=== PATIENT | male | born 1965 | race Caucasian/White ===

== ENCOUNTER → 2019-07-11 | Outpatient (CLI) | payer BC | LOC: SJCVCIMAG 10:11 | DX: I08.8 Other rheumatic multiple valve diseases (principal); R01.1 Cardiac murmur, unspecified; R06.09 Other forms of dyspnea; R53.83 Other fatigue ==

== ENCOUNTER → 2019-07-24 | Outpatient (CLI) | payer BC ==
[~2019-07-24] MED LIST: ASPIRIN325 PO; CARVEDILOL6.25 M1 PO; EFFIENT10 MG PO; K-DUR10 MEQ PO; LASIX 20 MG TAB20 MG PO; LEVOXYL112 MCG PO; LEXAPRO 10 MG T10 M2 PO; ZESTRIL5 MG PO
== END ==
LOC: SJCVCIMAG 07:03
DX: I44.0 Atrioventricular block, first degree (principal); I10 Essential (primary) hypertension; Z79.899 Other long term (current) drug therapy

== ENCOUNTER 2019-07-30 07:59 | Inpatient (IN) | payer BC, OTHER ==
[2019-07-30] VITALS (10 sets, daily range): BP systolic 112–144; BP diastolic 81–93
[~2019-07-30] VITALS: Ht 172.7 cm; Wt 70.3 kg
[2019-07-30 09:18] LABS: HEMATOCRIT 48.7 % (42.0-52.0); HEMOGLOBIN 15.6 gm/dL (14.0-18.0); MCV 93.8 fL (80.0-100.0); PLATELET COUNT 244 thou/uL (150-400); RBC 5.19 mil/uL (4.50-6.00); RDW 16.7 % (10.5-14.5); WBC 11.4 thou/uL (4.0-11.0)
--- NOTE | 2019-07-30 09:22 | EKG ---
[facility] [place] [address] ELECTROCARDIOGRAM REPORT Name: RUTH AMADOR Room #: REG [facility]#: [id number] Admission: 07/30/19 Attend Phys: Clayton Serrano Discharge: Date of : 63 Report #: [id number] THIS REPORT FOR: cc: ESTEBAN NIELSEN JESSICA RNP Lundgren, Craig H. MD [facility] THIS REPORT FOR: //name// [facility] Test Date: 2019-07-30 Test Time: 08:55:54 Pat Name: RUTH AMADOR Department: Room: Gender: Automobile Mechanic Supervisor: Jason MCCLELLAN : 1965 Requested By: Clayton Serrano Order Number: [id number] MD: Raphael Gatica Measurements Intervals [place] Rate: 77 P: 49 WA: 239 QRS: -103 QRSD: 143 T: 17 QT: 379 QTc: 429 Interpretive Statements Sinus rhythm Prolonged WA interval Probable left atrial enlargement RBBB and LAFB No previous ECG available for comparison Electronically Signed On 07-30-2019 9:21:31 RASCHEL KNITTING MACHINE OPERATOR by Raphael Gatica [email or web address] <ELECTRONICALLY SIGNED> By: Raphael Gatica MD, FACC 07/30/19 0921 0855 Raphael Gatica MD, [facility] /EPI
[2019-07-30] MEDS ORDERED: ZESTRIL5 MG PO (09:23)
[2019-07-30] MEDS ORDERED: LEVOXYL112 MCG PO (09:23)
[2019-07-30] MEDS ORDERED: LEXAPRO 10 MG T10 M2 PO (09:24)
[2019-07-30] MEDS ORDERED: CARVEDILOL6.25 M1 PO (09:24)
[2019-07-30] MEDS ORDERED: LASIX 20 MG TAB20 MG PO (09:24)
[2019-07-30] MEDS ORDERED: K-DUR10 MEQ PO (09:25)
[2019-07-30 09:28] LABS: CALCIUM 9.4 mg/dL (8.5-10.1); CREATININE 1.1 mg/dL (0.7-1.3); POTASSIUM 4.9 mmol/L (3.5-5.1)
[2019-07-30 09:47] LABS: ABSOLUTE NEUTROPHILS 8.3 thou/uL (1.4-8.2); PLATELET ESTIMATE NORMAL
--- NOTE | 2019-07-30 16:27 | NUR ---
PT CARE ASSUMED APPROX 1300 POST CARDIAC CATH. PT ARRIVED WITH AT BEDSIDE. BOTH DENY QUESTIONS OR CONCERNS REGARDING POC. RIGHT GROIN POST CATH SITE C/D/I. GAIT ASSESSED AFTER BEDREST COMPLETED. PT UP WITH STEADY GAIT. VSS. MEDS ENTERED PER HOME REGIMINE ORDERED PER DR GAUTHIER. PT TOLERATING POC. NO DISTRESS NOTED.
--- NOTE | 2019-07-31 04:05 | NUR ---
ASSUMED PT CARE AT 1900, PT IS A&OX4, PT IS CALM AND PLEASANT, DENIES CHEST PAIN OR SOB, VITAL SIGNS STABLE, ASSESSMENTS CHARTED, RIGHT GROIN SITE CLEAN, DRY AND INTACT, RESTED WELL, WILL CONTINUE TO MONITOR
[2019-07-31 05:11] VITALS: BP 107/65
[2019-07-31 07:30] VITALS: BP 136/86
--- NOTE | 2019-07-31 10:14 | NUR ---
AAOX4. SR PER TELE WITH 1D AVB AND BBB. ASYMPTOMATIC. LIKELY DISCHARGING TODAY. AT BEDSIDE. WORKING WITH CARDIAC REHAB. WILL CONTINUE TO FOLLOW.
[2019-07-31 11:30] VITALS: BP 108/72
[2019-07-31] MEDS ORDERED: EFFIENT10 MG PO (12:50)
[2019-07-31] MEDS ORDERED: ASPIRIN325 PO (12:57)
[2019-07-31 13:24] VITALS: BP 107/65
--- NOTE | 2019-07-31 15:40 | NUR ---
DR. GAUTHIER'S OFFICE CALLED FOR DISCHARGE ORDERS AND INSTRUCTIONS. HE SAID HE WILL TAKE CARE OF IT.
--- NOTE | 2019-08-04 12:08 | CATHLAB ---
[facility] [place] [address] INVASIVE PROCEDURE REPORT Name: RUTH AMADOR Room #: 214-P [facility] IN M.R.#: [id number] Admission: 07/30/19 Attend Phys: Clayton Serrano Discharge: 07/31/19 Date of : 63 Report #: [id number] THIS REPORT FOR: cc: ESTEBAN NIELSEN JESSICA RNP Lammoglia, Francisco J. MD ~ APPROVED REPORT Study performed: 07/30/2019 09:47:03 Patient Details Patient Status: Out-Patient Room #: The patient is a 54 year-old male Event Personnel Clayton Serrano Botany Teacher, Michelle Yancey RN RN, Liat Aguilar Jackson, Sherra RTR Monitor, Eben Rod Monitor Procedures Performed Art Access - R femoral artery* KIRSTEN Place w/wo Plasty Single CIRC [id number] Initial Mod Sed Same Phys/QHP Gr5y 761696 11552 Mod Sed Same Phys/QHP Ea 533684 Hemostasis w/ Mynx Left Heart Cath w/or w/o Coronaries [id number] [facility], supervision of conscious sedation Indication CardiomyopathyPositive stress test, Chest pain Procedure Narrative The patient was brought electively to the Cardiac Catheterization Laboratory and was prepped and draped in a sterile manner. The Right Groin^ was infiltrated with 1% Lidocaine subcutaneous anesthesia. A PINNACLE 4FR Sheath #[id number] sheath was inserted into the RFA^. Coronary angiography was performed using coronary diagnostic catheters. The right coronary system was accessed and visualized with a JR 4 catheter. The left coronary system was accessed and visualized with a JL 4 catheter. The left ventricle was accessed and visualized with a Pigtail catheter. Left ventricular/Aortic Valve gradient assessed . Closure device was deployed with a 6 Fr Mynx. The patient tolerated the procedure well and there were no complications associated with the procedure. There was no hematoma. Intraoperative Conscious Sedation [facility] [address] [place] [address] INVASIVE PROCEDURE REPORT Name: RUTH AMADOR Room #: 214-P [facility] IN [facility].#: [id number] Admission: 07/30/19 Attend Phys: Clayton Miller Discharge: 07/31/19 Date of : 63 Report #: [id number] Sedation start time: 09:55 Case end Time: 10:52 Versed --2 mg Fluoro Time: 14.00 minutes Dose: DAP 81567.00 cGycm2 3374 mGy Contrast Type and Amount: Omnipaque 115 ml Diagnostic Cath Left Main Normal origin and caliber bifurcates left anterior descending left circumflex is free of high-grade disease LAD Moderate caliber type II vessel courses in the anterior interventricular sulcus. There are mild luminal irregularities of less than 30% throughout the proximal and proximal mid LAD. Its course in the sulcus is tortuous as it terminates as a small bifurcating vessel at the apex. It gives rise to septal and diagonal branches in its course Diagonal 1 Small caliber vessel without high-grade Diagonal 2 Small-caliber vessel without high-grade lesions coursing along the mid anterolateral wall Circumflex Moderate caliber nondominant vessel that has an eccentric greater than 75% lesion noted in its proximal portion. It then continues on giving rise to moderate caliber lateral wall marginal branch and then continues posteriorly in the AV groove giving rise to small posterior wall branches. POST STENT: A proximal portion of the left circumflex is widely patent and without any loss of side branches mobilization or intraluminal disruption. The prior mentioned eccentric lesion is no longer noted OM1 Moderate caliber vessel coursing on the lateral aspect of ventricle without high-grade lesions present OM2 Small-caliber vessel on the lateral posterior wall free of high-grade disease OM3 Diminutive size vessel without high-grade lesions Right Coronary Moderate caliber vessel of inferior origin. Proceeds in the AV groove. There is an eccentric lesion at the proximal portion of less than 50%. This is within the first 10 mm of the vessel. The vessel then continues on to the acute margin acute margin where there is several regions of moderate irregularities all less than 50%. The vessel then continues to the crux of the heart gives a history of small to moderate caliber posterior descending artery free of high-grade disease R PDA Small to moderate caliber vessel courses in the posterior and ventricular sulcus free of significant stenosis [address] [address] INVASIVE PROCEDURE REPORT Name: RUTH AMADOR Room #: 214-P [facility] IN M.R.#: [id number] Admission: 07/30/19 Attend Phys: Clayton Miller Discharge: 07/31/19 Date of : 63 Report #: [id number] Hemodynamics The aortic pressure is 110/68 mmHg with a mean of 84 mmHg. The left ventricular pressure is 119/67 mmHg with a mean of mmHg. The left ventricular end diastolic pressure is 69 mmHg. PCI Technique Patient's initial of 4 [place] diagnostic system was then exchanged for a 6 [place] system. A standard left Aris 4 curved catheter was engaged with the left coronary ostium and a 0.014 wire was then advanced distal to the lesion. A 4 mm x 12 mm stent was then positioned across the lesion and deployed. Post deployment a high pressure balloon was utilized to 20 tracy for a resulting diameter of greater than 4 mm. There is no loss of side branches embolization noted. Patient tolerated procedure well and no complications. Throughout the procedure numerous visualizations and as well as use of intracoronary medications were noted as recorded in the procedure log. PCI Technique Lesion Percutaneous coronary intervention was performed on the proximal right coronary artery. A LAUNCHER 6FR JL4 #[id number] Guide Catheter was used to engage the ostium. A Runthrough Wire .014 X 180 #[id number] Interventional Guidewire was used to cross the lesion. STENT DEPLOYMENT A drug-eluting stent RESOLUTE KAYLEN OTW 3.5 X 12 #[id number] was inserted and inflated up to 10.00atm for 50seconds. Additional Inflation: 12.00atm for 15seconds. POST STENT DEPLOYMENT BALLOON DILATION A Balloon catheter Euphora NC RX 3.75 x 6 #[id number] was inserted and inflated up to 14.00atm for 21seconds. Additional Inflation: 20.00atm for 10seconds. Additional Inflation: 22.00atm for 13seconds. Conclusion 1. Coronary disease, severe, single vessel 2. Successful percutaneous revascularization with a KIRSTEN Medtronic stent to the proximal left circumflex lesion 3. Normal hemodynamics Recommendations Cardiac Risk Reduction Program Aggressive Medical Therapy [facility] [address] [place] [address] INVASIVE PROCEDURE REPORT Name: RUTH AMADOR Room #: 214-P [facility] IN M.R.#: [id number] Admission: 07/30/19 Attend Phys: Clayton Miller Discharge: 07/31/19 Date of : 63 Report #: [id number] Medications Administered Prasugrel <ELECTRONICALLY SIGNED> By: Clayton Serrano MD 08/04/19 1207 1207 1207 Clayton Serrano MD /INF
== END 2019-07-31 16:54 | disposition home or self-care (01) | DRG 247 ==
LOC: CATH 07:59 → 2N 14:10 → CATH 21:56 → 2N 07-31 16:54
PROVIDERS: ADMIT Internal Medicine
PROC: B2111ZZ Fluoroscopy of Multiple Coronary Arteries using Low Osmolar Contrast (ICD-10-PCS; principal; 2019-07-30)
PROC: 4A023N7 Measurement of Cardiac Sampling and Pressure, Left Heart, Percutaneous Approach (ICD-10-PCS; principal; 2019-07-30)
PROC: 027034Z Dilation of Coronary Artery, One Artery with Drug-eluting Intraluminal Device, Percutaneous Approach (ICD-10-PCS; principal; 2019-07-30)
DX: I25.10 Atherosclerotic heart disease of native coronary artery without angina pectoris (principal); I50.22 Chronic systolic (congestive) heart failure; I42.9 Cardiomyopathy, unspecified; F41.9 Anxiety disorder, unspecified; E78.00 Pure hypercholesterolemia, unspecified; E03.9 Hypothyroidism, unspecified; Z90.49 Acquired absence of other specified parts of digestive tract; Z79.82 Long term (current) use of aspirin; Z79.899 Other long term (current) drug therapy; Z85.72 Personal history of non-Hodgkin lymphomas; Z90.81 Acquired absence of spleen
CPT/HCPCS: 10081